=== PATIENT | male | born 1990 | race Caucasian/White ===

== ENCOUNTER 2017-05-19 02:23 | Emergency (ER) | payer OTHER ==
[2017-05-19 02:33] VITALS: BP 114/68; PULSE 61; TEMP 98.6; BMI 23.6
[2017-05-19] MEDS ORDERED: KETOROLAC TROMETHAMINE 60 MG/2 ML VIAL IM ONE (02:36)
--- NOTE | 2017-05-19 02:36 | PDOC ---
History of Present Illness - General Chief Complaint: Pain, Acute Stated Complaint: KNEE PAIN Time Seen by Provider: 05/19/17 02:36 History Source: Patient Exam Limitations: No Limitations - History of Present Illness Initial Comments: 05/19/17 02:37 This is 27-year-old male who comes in complaining of left knee pain. Patient said he was walking down the stairs when he missed a step and felt a pop in his knee. Patient is able to bear weight but says it is painful. Patient took a Percocet and came in for evaluation. Patient denies any other complaints. Patient did not fall down or injure himself in any other way. PAST MEDICAL HISTORY: no significant history PAST SURGICAL HISTORY: no significant history FAMILY HISTORY: no pertinant history SOCIAL HISTORY: Pt lives with family and is employed. MEDICATIONS: reviewed ALLERGIES: As per nursing notes Review of Systems General: No fevers or chills, no weakness, no weight loss HEENT: No change in vision. No sore throat,. No ear pain CardioVascular: No chest pain or shortness of breath Respiratory:No cough, or wheezing. Gastrointestinal: no nausea, vomitting, diarrhea or constipation, No rectal bleeding Genitourinary: No dysuria, hematuria, or frequency Musculoskeletal: Left knee pain Neurologic: No headache, vertigo, dizziness or loss of consciousness Psychiatric: nor depression Skin: No rashes or easy bruising Endocrine: no increased thirst or abnormal weight change Allergic: no skin or latex allergy All other systems reviewed and normal GENERAL: The patient is awake, alert, and fully oriented, in no acute distress. HEAD: Normal with no signs of trauma. EYES: Pupils equal, round and reactive to light, extraocular movements intact, sclera anicteric, conjunctiva clear. EXTREMITIES: There is decreased range of motion secondary to pain. Patient is able to lift his leg up off the bed and the extensor mechanism is intact. There is no ligamentous instability on testing. There is some mild swelling of the knee but no ecchymosis. Neurovascular distal is intact. NEUROLOGICAL: Normal speech, normal gait. PSYCH: Normal mood, normal affect. SKIN: Warm, Dry, normal turgor, no rashes or lesions noted. Assessment and plan: This is a 27-year-old male with ligamentous injury to his left knee. Patient given knee immobilizer and crutches. Patient given note for no work Saturday and referral to an orthopedist. Patient discharged home. Patient has Percocet at home that he can take for pain. Past History - Suicide/Smoking/Psychosocial Hx Smoking History: Unknown if ever smoked Hx Alcohol Use: No Drug/Substance Use Hx: No *Physical Exam - Vital Signs Last Vital Signs Temp Pulse Resp BP Pulse Ox 98.6 F 61 18 114/68 98 05/19/17 02:24 05/19/17 02:24 05/19/17 02:24 05/19/17 02:05/19/17 02:24 *DC/Admit/Observation/Transfer Diagnosis at time of Disposition: Acute internal derangement of left knee - Discharge Dispostion Disposition: HOME Condition at time of disposition: Good Admit: No - Patient Instructions Additional Instructions: Wear the knee immobilizer and use your crutches for ambulation. Tylenol or Motrin as needed for pain. Call orthopedist on Saturday call Dr. Segal at [phone] for an appointment. Return to the emergency department immediately with ANY new, persistent or worsening symptoms. Continue any medications as previously prescribed by your physician. You should follow up with your primary doctor as soon as possible regarding today's emergency department visit. . Please make sure your doctor reviews the results of your emergency evaluation. Thank you for coming to the Emergency Department today for your care. It was a pleasure to see you today. Please note that your evaluation is INCOMPLETE until you follow-up with your doctor. - Post Discharge Activity Forms/Work/School Notes: Parent(s) Back to Work Note
[2017-05-19] MEDS ORDERED: KETOROLAC TROMETHAMINE 60 MG/2 ML VIAL ONE (02:43)
== END 2017-05-19 02:55 | disposition home or self-care (01) ==
LOC: FER 02:23
PROC: 2W3RX1Z Immobilization of Left Lower Leg using Splint (ICD-10-PCS; principal; 2017-05-19)
DX: M23.92 Unspecified internal derangement of left knee (principal); W10.9XXA Fall (on) (from) unspecified stairs and steps, initial encounter; Y93.89 Activity, other specified; Y92.9 Unspecified place or not applicable
CPT/HCPCS: 99283-25

== ENCOUNTER 2017-05-20 12:15 | Emergency (ER) | payer OTHER ==
[2017-05-20 12:21] VITALS: BP 115/64; PULSE 73; TEMP 98.6; BMI 23.6
--- NOTE | 2017-05-20 13:15 | PDOC ---
History of Present Illness - General Chief Complaint: Injury Stated Complaint: FALL/ LT KNEE PAIN Time Seen by Provider: 05/20/17 13:08 History Source: Patient Exam Limitations: No Limitations - History of Present Illness Initial Comments: 05/20/17 13:21 My chief complaint: Left knee pain History of present illness: Patient is a 27-year-old male with no significant medical history here today complaining of continued left knee pain with swelling since falling down stairs on 05/18/2017 twisting his right knee. Patient reports that he heard a pop. Patient was seen at [facility] emergency room on 05/19/2017 and reports that he was given an immobilizer and crutches which he is wearing today and using. Patient reports that he did not have an x- ray is requesting to have an x-ray presently. Patient did not take anything for pain today. 05/20/17 13:23 Occurred: reports: other (05/18/17 FELL TWISTED LEFT KNEE) Pain Location: reports: lower extremity (LEFT KNEE) Method of Injury: Yes: fall Modifying Factors: improves with: immobilization, other (CRUTCHES, KNEE IMMOBLIZER) Loss of Consciousness: no loss of consciousness Associated Symptoms (Fall): trouble walking (USING CRUTCHES ) Past History - Past Medical History Allergies/Adverse Reactions: Allergies Allergy/AdvReac Type Severity Reaction Status Date / Time No Known Allergies Allergy Verified 05/20/17 12:18 Home Medications: Ambulatory Orders NK [No Known Home Medication] 05/20/17 Other medical history: none - Immunization History Immunization Up to Date: Yes - Suicide/Smoking/Psychosocial Hx Smoking History: Never smoked Hx Alcohol Use: No Drug/Substance Use Hx: Yes Substance Use Type: Marijuana Review of Systems - Review of Systems Able to Perform ROS?: Yes Constitutional: No: Symptoms Reported HEENTM: No: Symptoms Reported Respiratory: No: Symptoms reported, Hemoptysis ABD/GI: No: Symptoms Reported : No: Symptoms Reported Musculoskeletal: Yes: Joint Pain (LFET KNEE), Joint Swelling (LEFT KNEE), Other (FELT A POP IN LEFT KNEE ON 05/18/17) Integumentary: No: Symptoms Reported Neurological: No: Symptoms reported *Physical Exam - Vital Signs Last Vital Signs Temp Pulse Resp BP Pulse Ox 98.6 F 73 18 115/64 100 05/20/17 12:19 05/20/17 12:19 05/20/17 12:19 05/20/17 12:19 05/20/17 12:19 - Physical Exam General Appearance: Yes: Appropriately Dressed Extremity: positive: Normal Capillary Refill, Tender (left knee), Swelling ( left knee ), Other. negative: Normal Range of Motion (left knee ) Integumentary: positive: Normal Color Neurologic: positive: Alert, Normal Response, Responsive Medical Decision Making - Medical Decision Making 05/20/17 13:23 05/20/17 13:23 Patient is a 27-year-old male with no significant medical history here today complaining of continued left knee pain with swelling since falling down stairs on 05/18/2017 twisting his right knee. Patient reports that he heard a pop. Patient was seen at [facility] emergency room on 05/19/2017 and reports that he was given an immobilizer and crutches which he is wearing today and using. Patient reports that he did not have an x-ray is requesting to have an x-ray presently. Patient did not take anything for pain today. r/o UMAIR ABNORMALITY LEFT KNEE PLAN; XRAY LEFT KNEE NO ACUTE FRACTURE NOTED IBUPROFEN 600 MG PO NOW 05/20/17 13:58 05/20/17 14:02 05/20/17 14:[address] DEL TORO 05/21/17 AT NOON HERE AT [facility] 05/20/17 14:45 *DC/Admit/Observation/Transfer Diagnosis at time of Disposition: Acute internal derangement of left knee - Discharge Dispostion Disposition: HOME Condition at time of disposition: Stable - Referrals Referrals: Neel Segal MD [Staff Physician] - STAFF,NOT ON [Primary Care Provider] - Jose Elias Del Toro MD [Staff Physician] - - Patient Instructions Additional Instructions: Continue to elevate your leg left leg as much as possible and keep knee immobilizer on and use crutches for ambulation you need to apply ice to your left knee every 2 hours for at least 15-20 minutes each time Do not ambulate without sure crutches Take ibuprofen as needed as directed by department editor for pain Follow up with Dr. Del Toro orthopedist at 12 noon on 05/21/2017 here at [facility] [address]LO[address] [place] Return to emergency room only if any numbness of your left leg or any other new symptoms develop Patient voiced understanding of discharge instructions and all questions were answered thank you for choosing [facility] emergency room for your medical needs today - Post Discharge Activity Forms/Work/School Notes: Back to Work
[2017-05-20] MEDS ORDERED: IBUPROFEN 600 MG TABLET (FP) PO ONE ×2 (13:57→14:03)
== END 2017-05-20 14:51 | disposition home or self-care (01) ==
LOC: JERFT 12:15
DX: M23.8X1 Other internal derangements of right knee (principal); W10.8XXA Fall (on) (from) other stairs and steps, initial encounter; Y93.89 Activity, other specified; Y92.89 Other specified places as the place of occurrence of the external cause; Y99.8 Other external cause status
CPT/HCPCS: 73562-TC-LT; 99281-25

== ENCOUNTER 2017-09-18 17:21 | Emergency (ER) | payer OTHER ==
[2017-09-18 17:45] VITALS: BP 144/84; PULSE 81; TEMP 98.7; BMI 20.9
--- NOTE | 2017-09-18 17:45 | PDOC ---
Rapid Medical Evaluation Time Seen by Provider: 09/18/17 17:40 Medical Evaluation: Allergies Allergy/AdvReac Type Severity Reaction Status Date / Time No Known Allergies Allergy Verified 09/18/17 17:40 I have performed a brief in-person evaluation of this patient. The patient presents with a chief complaint of: burning with urination x 3 days. Pertinent physical exam findings: N/A I have ordered the following: UA/culture, GC/Chlamydia, HIV testing The patient will proceed to the ED for further evaluation.
[2017-09-18 18:24] LABS: URINE APPEARANCE CLEAR; URINE BILIRUBIN NEGATIVE (NEGATIVE); URINE BLOOD NEGATIVE (NEGATIVE); URINE COLOR LTYELLOW; URINE GLUCOSE (UA) NEGATIVE (NEGATIVE); URINE KETONE NEGATIVE (NEGATIVE); URINE LEUK ESTERASE NEGATIVE (NEGATIVE); URINE NITRITE NEGATIVE (NEGATIVE); URINE PROTEIN NEGATIVE (NEGATIVE); URINE UROBILINOGEN 4.0 E.U/dl mg/dL (0.2-1.0)
[2017-09-18] MEDS ORDERED: AZITHROMYCIN 1 GM PACKET PO ONE (20:39)
--- NOTE | 2017-09-18 20:41 | PDOC ---
History of Present Illness - General Chief Complaint: Urinary Problem Stated Complaint: MALE ISSUE Time Seen by Provider: 09/18/17 17:40 History Source: Patient Exam Limitations: No Limitations - History of Present Illness Travel History: No Initial Comments: 09/18/17 20:35 Patient states had unprotected sex with a new partner approximately 2-1/2 3 weeks ago, and felt some discomfort the following day including some burning and tenderness with urination. Patient denies any penile discharge but states has some mild tenderness to his testicles. Denies street of STDs. Timing/Duration: reports: changing over time Quality: reports: mild, moderate Pain Radiation: reports: no radiation Past History - Travel Traveled outside of the country in the last 30 days: No Close contact w/someone who was outside of country & ill: No - Past Medical History Allergies/Adverse Reactions: Allergies Allergy/AdvReac Type Severity Reaction Status Date / Time No Known Allergies Allergy Verified 09/18/17 17:40 Home Medications: Ambulatory Orders NK [No Known Home Medication] 05/20/17 COPD: No - Immunization History Immunization Up to Date: Yes - Suicide/Smoking/Psychosocial Hx Smoking History: Never smoked Hx Alcohol Use: Yes Drug/Substance Use Hx: Yes (marijuana) Substance Use Type: Alcohol, Marijuana Review of Systems - Review of Systems Able to Perform ROS?: Yes Is the patient limited Bel[place]ian proficient: Yes Constitutional: Yes: Symptoms Reported, See HPI, Fever, Malaise HEENTM: Yes: See HPI. No: Symptoms Reported Respiratory: Yes: See HPI. No: Symptoms reported : Yes: Symptoms Reported, See HPI, Burning, Dysuria, Testicular Pain. No: Frequency Integumentary: Yes: See HPI. No: Symptoms Reported, Lesions, Lumps, Rash All Other Systems: Reviewed and Negative *Physical Exam - Vital Signs Last Vital Signs Temp Pulse Resp BP Pulse Ox 98.7 F 81 18 144/84 99 09/18/17 17:40 09/18/17 17:40 09/18/17 17:40 09/18/17 17:40 09/18/17 17:40 - Physical Exam General Appearance: Yes: Nourished, Appropriately Dressed HEENT: positive: INOCENCIA, Normal ENT Inspection, Normal Voice, TMs Normal, Pharynx Normal Neck: positive: Supple. negative: Lymphadenopathy (R), Lymphadenopathy (L) Respiratory/Chest: positive: Lungs Clear, Normal Breath Sounds Gastrointestinal/Abdominal: positive: Soft Male Genitalia: positive: normal genitalia. negative: discharge, testicular tenderness (no reproduced tenderness with palpation to testicles or epididymis. 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, Fully Oriented, Alert, Normal Mood/ Affect, Normal Response, Motor Strength 12/28 ED Treatment Course - ADDITIONAL ORDERS Additional order review: Laboratory Results 09/18/17 18:09 Urine Color Ltyellow Urine Appearance Clear Urine pH 6.0 Ur Specific [place] 1.023 Urine Protein Negative Urine Glucose (UA) Negative Urine Ketones Negative Urine Blood Negative Urine Nitrite Negative Urine Bilirubin Negative Urine Urobilinogen 4.0 e.u/dl Ur Leukocyte Esterase Negative Progress Note - Progress Note Progress Note: Possible STD, treated with Rocephin 250 mg IM for gonorrhea treatment, given his azithromycin 1 g by mouth for treatment of chlamydia. Medical Decision Making - Medical Decision Making 09/18/17 21:23 Laboratory work returned tonight reveals negative UA, HIV testing negative. Patient understands he will not receive results of gonorrhea, chlamydia, hepatitis testing until following week. Medicated with Rocephin, azithromycin for chlamydia and gonorrhea *DC/Admit/Observation/Transfer Diagnosis at time of Disposition: Possible exposure to STD - Discharge Dispostion Disposition: HOME Condition at time of disposition: Stable Admit: No - Referrals Referrals: Stefano Zarco MD [Staff Physician] - - Patient Instructions Printed Discharge Instructions: Facts About Sexually Transmitted Infections Additional Instructions: You been treated today with azithromycin 1 g by mouth for treatment of chlamydia You have been treated with Rocephin 250 mg injection for treatment of gonorrhea . Always use condoms with the partners Followup with PMD in one week for reevaluation and retesting. You may call [phone] leave your name, birthdate, and date of service to have phone call returned for lab results. If These results will not be completed for at least one week discussed with all sexual partners this past month for treatment - Post Discharge Activity Forms/Work/School Notes: Back to Work
[2017-09-18] MEDS ORDERED: AZITHROMYCIN 500 MG TABLET ONE (20:44)
[2017-09-18] MEDS ORDERED: LIDOCAINE HCL 1%, 10 MG/ML (20ML VIAL) ONE (20:45)
[2017-09-18] MEDS ORDERED: LIDOCAINE HCL 1%, 10 MG/ML (50 mL VIAL) SNB ONE (21:43)
== END 2017-09-18 21:45 | disposition home or self-care (01) ==
LOC: JERFT 17:21
DX: Z11.3 Encounter for screening for infections with a predominantly sexual mode of transmission (principal)
CPT/HCPCS: 36415; 81003; 87086; 87389; 87491; 87591; 96372; 99281-25

== ENCOUNTER 2017-10-08 19:34 | Emergency (ER) | payer OTHER ==
--- NOTE | 2017-10-08 19:53 | PDOC ---
Rapid Medical Evaluation Time Seen by Provider: 10/08/17 19:48 Medical Evaluation: Allergies Allergy/AdvReac Type Severity Reaction Status Date / Time No Known Allergies Allergy Verified 09/18/17 17:40 10/08/17 19:48 I have performed a brief in-person evaluation of this patient. The patient presents with a chief complaint of: boil/cyst to perineum x months, "feeling off today", +nausea/chills/headache, abd pain, denies vomiting/diarrhea Pertinent physical exam findings: N/A I have ordered the following: nothing The patient will proceed to the ED for further evaluation. Discharge Disposition - Diagnosis Boil - Referrals - Patient Instructions - Post Discharge Activity
[2017-10-08 19:55] VITALS: BP 133/38; PULSE 81; TEMP 98.2; BMI 20.9
[2017-10-08] MEDS ORDERED: SULFAMETHOXAZOLE/TRIMETHOPRIM 800MG/160MG D.S. TABLET PO ONE (23:57)
[2017-10-08] MEDS ORDERED: IBUPROFEN 600 MG TABLET (FP) PO STA (23:57)
--- NOTE | 2017-10-08 23:57 | PDOC ---
History of Present Illness - General History Source: Patient <Abel Goss - Last Filed: 10/08/17 23:59> - General History Source: Patient Exam Limitations: No Limitations - History of Present Illness Initial Comments: 10/09/17 00:31 Patient is a 27 year old male with no significant past medical history who presents to the ED with complaints of lesion formation on his inner thigh that began 3 months ago. Patient reports experiencing formation of a lesion on his inner thigh that initially started to form 3 months ago that began to become firmer over the last week, prompting him to come into the ED for further evaluation. He reports over the course of 3 months the lesion has grown and diminishes in size as he states he has squeezed the contents of the lesion offering slight relief. Denies chest pain, Sob. Denies nausea, vomiting. Denies fevers, chills. Denies trauma to affected area. Denies contact with sick individuals, out of state travelling. Denies any other symptoms. Allergies: None Social history: No smoking. Social drinker. Current Marijuana user. Surgical history: None PMD: None <James Xavier - Last Filed: 10/09/17 00:32> - General Chief Complaint: Pain Stated Complaint: BOIL Time Seen by Provider: 10/08/17 19:48 Past History - Past Medical History COPD: No Other medical history: Pt denies - Immunization History Immunization Up to Date: Yes - Suicide/Smoking/Psychosocial Hx Smoking History: Never smoked Have you smoked in the past 12 months: No Information on smoking cessation initiated: No Hx Alcohol Use: No Drug/Substance Use Hx: No Substance Use Type: Alcohol, Marijuana <Abel Goss - Last Filed: 10/08/17 23:59> <James Xavier - Last Filed: 10/09/17 00:32> - Past Medical History Allergies/Adverse Reactions: Allergies Allergy/AdvReac Type Severity Reaction Status Date / Time No Known Allergies Allergy Verified 10/08/17 19:52 Home Medications: Ambulatory Orders Ibuprofen [Motrin] 600 mg PO TID #30 tablet 10/08/17 Sulfamethoxazole/Trimethoprim [Bactrim *Ds*] 1 tab PO BID #20 tablet 10/08/17 Review of Systems - Review of Systems Able to Perform ROS?: Yes Comments:: 10/09/17 00:31 CONSTITUTIONAL: Absent: fever, no chills, no fatigue EYES: Absent: visual changes ENT: Absent: ear pain, no sore throat CARDIOVASCULAR: Absent: chest pain, no palpitations RESPIRATORY: Absent: cough, no SOB GI: Absent: abdominal pain, no nausea, no vomiting, no constipation, no diarrhea GENITOURINARY: Absent: dysuria, no frequency, no hematuria MUSCULOSKELETAL: Absent: back pain, no arthralgia, no myalgia SKIN: +inner groin lesion. Absent: rash <James Xavier - Last Filed: 10/09/17 00:32> *Physical Exam - Vital Signs Last Vital Signs Temp Pulse Resp BP Pulse Ox 98.2 F 81 18 133/38 100 10/08/17 19:53 10/08/17 19:53 10/08/17 19:53 10/08/17 19:53 10/08/17 19:53 <Abel Goss - Last Filed: 10/08/17 23:59> - Vital Signs Last Vital Signs Temp Pulse Resp BP Pulse Ox 98.2 F 81 18 133/38 100 10/08/17 19:53 10/08/17 19:53 10/08/17 19:53 10/08/17 19:53 10/08/17 19:53 - Physical Exam Comments: 10/09/17 00:31 GENERAL: Well-appearing, well-nourished. No apparent distress. HEENT: Normocephalic, atraumatic. PERRL, EOM intact. CARDIOVASCULAR: Normal S1, S2. Regular rate and rhythm. PULMONARY: Clear to auscultation bilaterally. ABDOMEN: Soft, non-distended, non-tender. EXTREMITIES: Normal ROM in all four extremities. No gross deformities. SKIN: +Lesion in the inner aspect of the left thigh just lateral to the base of the scrotum. +Firm lesion on the inner groin lateral to the perineum in the medial aspect of the left thigh. +Mildly tender. Non fluctuant. No erythema, drainage. Warm, dry. No rash NEUROLOGICAL: No focal neurological deficits. <James Xavier - Last Filed: 10/09/17 00:32> ED Treatment Course - Medications Given in the ED: ED Medications Discontinued Medications Generic Name Dose Route Start Last Admin Trade Name Freq PRN Reason Stop Dose Admin Ibuprofen 600 mg 10/08/17 23:57 10/09/17 00:04 Motrin - PO 10/08/17 23:58 600 mg ONCE STA Administration Trimethoprim/Sulfamethoxazole 1 each 10/08/17 23:57 10/09/17 00:04 Bactrim Ds - PO 10/08/17 23:58 1 each ONCE ONE Administration <James Xavier - Last Filed: 10/09/17 00:32> Medical Decision Making - Medical Decision Making 10/09/17 00:00 Dr. Goss: The scribe's documentation has been prepared under my direction and personally reviewed by me in its entirery. I confirm that the note above accurately reflects all work, treatment, procedures, and medical decision making performed by me. Patient has lesion in the groin in the medial aspect of the left thigh. It is firm, tender, non-fluctuant, with no surrounding erythema. Patient will be given antibiotics to allow mature. Patient will return once lesion becomes soft for I&D <Abel Goss - Last Filed: 10/08/17 23:59> *DC/Admit/Observation/Transfer - Discharge Dispostion Admit: No <Abel Goss - Last Filed: 10/08/17 23:59> - Attestations Scribe Attestion: 10/09/17 00:31 Documentation prepared by James Xavier, acting as medical communication specialist for Able Goss MD/DO. <James Xavier - Last Filed: 10/09/17 00:32> Diagnosis at time of Disposition: Boil, Abscess - Discharge Dispostion Disposition: HOME Condition at time of disposition: Stable - Prescriptions Prescriptions: Ibuprofen [Motrin] 600 mg PO TID #30 tablet Sulfamethoxazole/Trimethoprim [Bactrim *Ds*] 1 tab PO BID #20 tablet - Patient Instructions Printed Discharge Instructions: DI for Skin Abscess
[2017-10-09] MEDS ORDERED: IBUPROFEN 600 MG TABLET (FP) PO ONE (00:01)
[2017-10-09] MEDS ORDERED: SULFAMETHOXAZOLE/TRIMETHOPRIM 800MG/160MG D.S. TABLET ONE (00:01)
== END 2017-10-09 00:53 | disposition home or self-care (01) ==
LOC: JER 19:34
DX: L02.416 Cutaneous abscess of left lower limb (principal)
CPT/HCPCS: 99281-25

== ENCOUNTER 2017-10-21 21:45 | Emergency (ER) | payer OTHER ==
[2017-10-21 21:54] VITALS: TEMP 98; BMI 22.3
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
[2017-10-21 22:26] LABS: BASO % 0.4 % (0-2.0); EOS % 0.7 % (0-4.5); HEMOGLOBIN 15.3 GM/dL (11.7-16.9); LYMPH % 19.8 % (8-40); MCH 33.2 pg (25.7-33.7); MCHC 34.1 g/dl (32.0-35.9); MEAN CELL VOLUME 97.5 fl (80-96); MEAN PLT VOLUME 9.1 fl (7.5-11.1); MONO % 6.2 % (3.8-10.2); NEUT % 72.9 % (42.8-82.8); PLATELET COUNT 176 K/MM3 (134-434); RBC 4.62 M/mm3 (4.00-5.60); RDW 13.7 % (11.9-15.9); WHITE BLOOD COUNT 9.9 K/mm3 (4.0-10.0)
[2017-10-21 22:36] LABS: INR 1.04 (0.82-1.09); PROTHROMBIN TIME (PATIENT) 11.7 SEC (9.98-11.88)
[2017-10-21 22:38] LABS: ACTIVATED PTT 31.5 SECONDS (26.9-34.4)
[2017-10-21 22:53] LABS: ALBUMIN 4.1 g/dl (3.4-5.0); ALK PHOS 94 U/L (45-117); ANION GAP 5 (8-16); BILIRUBIN,TOTAL 0.4 mg/dL (0.2-1.0); BLOOD UREA NITROGEN 16 mg/dL (7-18); CALCIUM 8.5 mg/dL (8.5-10.1); CHLORIDE 105 mmol/L (98-107); CO2 30 mmol/L (21-32); CREATININE 1.2 mg/dL (0.7-1.3); GLUCOSE,RANDOM 96 mg/dL (74-106); POTASSIUM 3.9 mmol/L (3.5-5.1); SGOT/AST 23 U/L (15-37); SGPT/ALT 28 U/L (12-78); SODIUM 140 mmol/L (136-145); TOT PROT 7.2 g/dl (6.4-8.2)
[2017-10-22 01:39] LABS: URINE APPEARANCE CLEAR; URINE BILIRUBIN NEGATIVE (NEGATIVE); URINE BLOOD NEGATIVE (NEGATIVE); URINE COLOR YELLOW; URINE GLUCOSE (UA) NEGATIVE (NEGATIVE); URINE KETONE NEGATIVE (NEGATIVE); URINE LEUK ESTERASE NEGATIVE (NEGATIVE); URINE NITRITE NEGATIVE (NEGATIVE); URINE PROTEIN NEGATIVE (NEGATIVE); URINE UROBILINOGEN NEGATIVE mg/dL (0.2-1.0)
[2017-10-22 02:14] VITALS: BP 119/68; PULSE 89
== END 2017-10-22 02:14 | disposition home or self-care (01) ==
LOC: JER 21:45
DX: S06.0X1A Concussion with loss of consciousness of 30 minutes or less, initial encounter (principal); V29.88XA Motorcycle rider (driver) (passenger) injured in other specified transport accidents, initial encounter; Y92.488 Other paved roadways as the place of occurrence of the external cause; Y93.89 Activity, other specified; Y99.8 Other external cause status
CPT/HCPCS: 36415; 70450-TC; 70486-TC; 71111-TC-FY; 71250-TC; 72125-TC; 72192-TC; 73030-TC-LT-FY; 73030-TC-RT-FY; 73060-TC-LT-FY; 73060-TC-RT-FY; 73070-TC-RT-FY; 73110-TC-RT-FY; 73140-TC-RT-FY; 80053; 81003; 85025; 85610; 85730; 86850; 86900; 86901; 99283-25

== ENCOUNTER 2020-02-21 13:19 | Emergency (ER) | payer OTHER ==
--- NOTE | 2020-02-21 13:27 | PDOC ---
Rapid Medical Evaluation Time Seen by Provider: 02/21/20 13:23 Medical Evaluation: Allergies Allergy/AdvReac Type Severity Reaction Status Date / Time No Known Allergies Allergy Verified 10/21/17 21:52 02/21/20 13:23 Pt presents for a rash on his penis for three weeks. States that it is mildly itchy and painful. Sexually active with one partner. States he also has a similar rash on his foot and on his back Exam: defer to provider Orders: Defer to provider after exam Pt to proceed to FT for further evaluation Discharge Disposition - Diagnosis Rash - Referrals - Patient Instructions - Post Discharge Activity
[2020-02-21 13:35] VITALS: BP 120/63; PULSE 77; TEMP 98.7; BMI 23.6
--- NOTE | 2020-02-21 14:07 | PDOC ---
History of Present Illness - General Chief Complaint: Rash Stated Complaint: RASH Time Seen by Provider: 02/21/20 13:23 History Source: Patient Exam Limitations: No Limitations - History of Present Illness Initial Comments: 02/21/20 13:54 Patient is a 30-year-old male with no past medical history here with complaints of rash to his penis x 2 weeks. Patient states that the rash started out a little red dots with were irritated which has progressively worsened to the point that now it is a painful. He is also complaining of a rash on his scrotal sac and to his groin. States that he has had those for a long time because he gets a little sweaty. 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 No history of STD. Denies fever, chills, nausea, vomiting. PMHX: as above PSOCHX: ALL: NKDA GENERAL/CONSTITUTIONAL: [No fever or chills. No weakness. No weight change.] HEAD, EYES, EARS, NOSE AND THROAT: [No change in vision. No ear pain or discharge. No sore throat.] CARDIOVASCULAR: [No chest pain or shortness of breath.] RESPIRATORY: [No cough, wheezing, or hemoptysis.] GASTROINTESTINAL: [No nausea, vomiting, diarrhea or constipation. No rectal bleeding.] GENITOURINARY: [No dysuria, frequency, or change in urination.] MUSCULOSKELETAL: [No joint or muscle swelling or pain. No neck or back pain.] SKIN AND BREASTS: [(+) rash (-) easy bruising.] NEUROLOGIC: [No headache, vertigo, loss of consciousness, or loss of sensation.] ENDOCRINE: [No increased thirst. No abnormal weight change.] HEMATOLOGIC/LYMPHATIC: [No anemia, easy bleeding, or history of blood clots.] ALLERGIC/IMMUNOLOGIC: [No hives or skin allergy. No latex allergy.] GENERAL: [The patient is awake, alert, and fully oriented, in no acute distress.] HEAD: [Normal with no signs of trauma.] EYES: [Pupils equal, round and reactive to light, extraocular movements intact, sclera anicteric, conjunctiva clear.] ENT: [Ears normal, nares patent, oropharynx clear without exudates. Moist mucous membranes.] NECK: [Normal range of motion, supple without lymphadenopathy, JVD, or masses.] LUNGS: [Breath sounds equal, clear to auscultation bilaterally. No wheezes, and no crackles.] HEART: [Regular rate and rhythm, normal S1 and S2 without murmur, rub.] ABDOMEN: [Soft, nontender, normoactive bowel sounds. No guarding, no rebound. No masses.] : Circumcised, fine erythematous rash around the neck of the glans, no discharge noted EXTREMITIES: [Normal range of motion, no edema. No clubbing or cyanosis. No cords, erythema, or tenderness.] NEUROLOGICAL: [Cranial nerves II through XII grossly intact. Normal speech, normal gait.] PSYCH: [Normal mood, normal affect.] SKIN: [Warm, Dry, normal turgor, (+) erythematous rashes on the right foot over the instep, hyperpigmented rash to right shoulder, no lesions noted.] Past History - Medical History Allergies/Adverse Reactions: Allergies Allergy/AdvReac Type Severity Reaction Status Date / Time No Known Allergies Allergy Verified 02/21/20 13:37 Home Medications: Ambulatory Orders Clotrimazole/Betamethasone Dip [Clotrimazole-Betamethasone Crm] 45 gm TP BID #1 cream..g. 02/21/20 Tolnaftate 1% Powder [Tinactin] 1 applic TP BID #1 btl 02/21/20 COPD: No - Immunization History Immunization Up to Date: Yes - Psycho-Social/Smoking History Smoking History: Never smoked Have you smoked in the past 12 months: No - Substance Abuse Hx (Audit-C & DAST Scrn) How often the patient has a drink containing alcohol: Never Score: In Men: 4 or > Positive; In Women: 3 or > Positive: 0 Screen Result (Pos requires Nsg. Audit-10AR): Negative In the last yr the pt used illegal drug/Rx for NonMed reason: No Score: Yes response is considered Positive: 0 Screen Result (Positive result requires Nsg. DAST-10): Negative *Physical Exam - Vital Signs Last Vital Signs Temp Pulse Resp BP Pulse Ox 98.7 F 77 120/63 99 02/21/20 13:27 02/21/20 13:27 02/21/20 13:27 02/21/20 13:27 Medical Decision Making - Medical Decision Making 02/21/20 13:54 Patient is a 30-year-old male with no past medical history here with complaints of rash to his penis x 2 weeks. Patient states that the rash started out a little red dots with were irritated which has progressively worsened to the point that now it is a painful. He is also complaining of a rash on his scrotal sac and to his groin. States that he has had those for a long time because he gets a little sweaty. 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 No history of STD. Denies fever, chills, nausea, vomiting. Symptoms consistent with fungal infection to the glans penis will discharge patient with prescription for Chlortrimazole. I discussed the physical exam findings, ancillary test results and final diagnoses with the patient. I answered all of the patient's questions. The patient was satisfied with the care received and felt comfortable with the discharge plan and treatment plan. The Patient agrees to follow up with the primary care physician within 24-72 hours. Discharge - Discharge Information Problems reviewed: Yes Clinical Impression/Diagnosis: Rash, Tinea cruris, Balanitis Condition: Stable Disposition: HOME - Additional Discharge Information Prescriptions: Clotrimazole/Betamethasone Dip [Clotrimazole-Betamethasone Crm] 45 gm TP BID #1 cream..g. Tolnaftate 1% Powder [Tinactin] 1 applic TP BID #1 btl - Follow up/Referral - Patient Discharge Instructions Patient Printed Discharge Instructions: DI for Athlete's Foot, DI for Tinea Corporis, DI for Jock Itch Additional Instructions: Your Discharge Instructions: You must call primary care physician within 24 hours to arrange follow-up. Return to the Emergency Department with any new, persistent or worsening symptoms, for fever, chills, SOB, dizziness or any other concerning changes that may occur. - Post Discharge Activity
== END 2020-02-21 14:27 | disposition home or self-care (01) ==
LOC: JER 13:19
DX: R21 Rash and other nonspecific skin eruption (principal); B35.6 Tinea cruris; N48.1 Balanitis
CPT/HCPCS: 36415; 87491; 87591; 99283-25

== ENCOUNTER 2020-05-26 20:02 | Emergency (ER) | payer OTHER ==
[2020-05-26 20:07] VITALS: BP 132/66; PULSE 80; TEMP 97.1; BMI 22.3
--- NOTE | 2020-05-26 20:23 | PDOC ---
History of Present Illness - General Chief Complaint: Cold Symptoms Stated Complaint: COLD SYX Time Seen by Provider: 05/26/20 20:15 History Source: Patient Exam Limitations: Clinical Condition - History of Present Illness Initial Comments: 05/26/20 20:24 Patient with no significant past medical history present with complaint of 4 days history of nasal congestion, runny nose, sinus congestion and intermittent dry cough. Denies fever, chills, shortness of breath, chest pain, palpitation. Denies recent travel or sick contact. Patient report taking Zyrtec [id number] medication with no improvement. Denies any other symptoms Is this a multiple visit Asthma Patient?: No Timing/Duration: other (4 days) Past History - Medical History Allergies/Adverse Reactions: Allergies Allergy/AdvReac Type Severity Reaction Status Date / Time No Known Allergies Allergy Verified 02/21/20 13:37 Home Medications: Ambulatory Orders Clotrimazole/Betamethasone Dip [Clotrimazole-Betamethasone Crm] 45 gm TP BID #1 cream..g. 02/21/20 Tolnaftate 1% Powder [Tinactin] 1 applic TP BID #1 btl 02/21/20 Benzonatate [Tessalon Pearls -] 100 mg PO Q8H PRN #16 capsule 05/26/20 Ipratropium [place] 2 spray NS BID PRN #1 spray 05/26/20 Methylprednisolone [Medrol Dose Mihir] 4 mg PO ASDIR #21 tablet 05/26/20 COPD: No - Immunization History Immunization Up to Date: Yes - Psycho-Social/Smoking History Smoking History: Never smoked Have you smoked in the past 12 months: No - Substance Abuse Hx (Audit-C & DAST Scrn) How often the patient has a drink containing alcohol: Never Score: In Men: 4 or > Positive; In Women: 3 or > Positive: 0 Screen Result (Pos requires Nsg. Audit-10AR): Negative In the last yr the pt used illegal drug/Rx for NonMed reason: Yes Score: Yes response is considered Positive: 1 Screen Result (Positive result requires Nsg. DAST-10): Positive Review of Systems - Review of Systems Able to Perform ROS?: Yes Is the patient limited Pashto proficient: No Constitutional: No: Chills, Fever, Malaise HEENTM: Yes: Symptoms Reported, See HPI, Nose Congestion, Throat Pain. No: Eye Pain, Blurred Vision, Tearing, Recent change in vision, Double Vision, Cataracts, Ear Pain, Ocular Prothesis, Ear Discharge, Nose Pain, Tinnitus, Nose Bleeding, Hearing Loss, Throat Swelling, Mouth Pain, Dental Problems, Difficulty Swallowing, Mouth Swelling, Other Respiratory: Yes: Symptoms reported, See HPI, Cough. No: Orthopnea, Shortness of Breath, SOB with Exertion, SOB at Rest, Stridor, Wheezing, Productive cough, Hemoptysis, Other Cardiac (ROS): No: Symptoms Reported, See HPI, Chest Pain, Edema, Irregular Heart Rate, Lightheadedness, Palpitations, Syncope, Chest Tightness, Other ABD/GI: No: Symptoms Reported, See HPI, Nausea, Vomiting Musculoskeletal: No: Symptoms Reported Integumentary: No: Symptoms Reported, Rash All Other Systems: Reviewed and Negative *Physical Exam - Vital Signs Last Vital Signs Temp Pulse Resp BP Pulse Ox 97.1 F L 80 19 132/66 99 05/26/20 20:04 05/26/20 20:04 05/26/20 20:04 05/26/20 20:04 05/26/20 20:04 - Physical Exam 05/26/20 20:25 GENERAL: Well developed, well nourished. Awake and alert. No acute distress. HEENT: Normocephalic, atraumatic. PERRLA, EOMI. No conjunctival pallor. Sclera are non-icteric. Moist mucous membranes. Oropharynx is clear. NECK: Supple. Full ROM. CARDIOVASCULAR: Regular rate and rhythm. No murmurs, rubs, or gallops. Distal pulses are 2+ and symmetric. PULMONARY: No evidence of respiratory distress. Lungs clear to auscultation bilaterally. No wheezing, rales or rhonchi. ABDOMINAL: Soft. Non-tender. Non-distended. No rebound or guarding. No organomegaly. Normoactive bowel sounds. MUSCULOSKELETAL Normal range of motion at all joints. SKIN: Warm and dry. Normal capillary refill. No rashes. No cyanosis. NEUROLOGICAL: Alert, awake, appropriate. Gait is normal without ataxia. PSYCHIATRIC: Cooperative. Good eye contact. Appropriate mood General Appearance: Yes: Nourished, Appropriately Dressed. No: Apparent Distress Medical Decision Making - Medical Decision Making 05/26/20 20:24 Patient with no significant past medical history present with complaint of 4 days history of nasal congestion, runny nose, sinus congestion and intermittent dry cough. Denies fever, chills, shortness of breath, chest pain, palpitation. Denies recent travel or sick contact. Patient report taking Zyrtec [id number] medication with no improvement. Denies any other symptoms Clinical exam unremarkable except bilateral nasal congestion. Lungs clear to auscultation bilateral and normal cardio exam. Patient afebrile. Patient in no acute respiratory distress. Symptoms likely viral URI and stable for discharge on Tessalon Perles p.o. for cough and Atrovent nasal spray for nasal congestion with Medrol pack with advised to increase fluid intake with PCP follow-up Discharge - Discharge Information Problems reviewed: Yes Clinical Impression/Diagnosis: URI with cough and congestion Condition: Stable Disposition: HOME - Admission No - Additional Discharge Information Prescriptions: Ipratropium [place] 2 spray NS BID PRN #1 spray PRN Reason: nasal congestion Methylprednisolone [Medrol Dose Mihir] 4 mg PO ASDIR #21 tablet Benzonatate [Tessalon Pearls -] 100 mg PO Q8H PRN #16 capsule PRN Reason: Cough - Follow up/Referral - Patient Discharge Instructions Patient Printed Discharge Instructions: DI for Viral Upper Respiratory Infection -- Adult Additional Instructions: Your symptoms likely from viral infection. Take prescribed indications prescribed as needed for cough and congestion. Increase fluid intake. Follow- up with your primary care - Post Discharge Activity
--- OUTSIDE RECORDS SUMMARY | 2020-05-27 04:36 | XMS ---
:1990 Author Organization [facility] Care Team Providers Name Role Phone Ihezie, Mary Jo Unavailable Unavailable Ihezie, Mary Jo Unavailable Unavailable Ihezie, Mary Jo Unavailable Unavailable Ihezie, Mary Jo Unavailable Unavailable Ihezie, Mary Jo Unavailable Unavailable Ihezie, Mary Jo Unavailable Unavailable Ihezie, Mary Jo Unavailable Unavailable Ihezie, Mary Jo Unavailable Unavailable Ihezie, Mary Jo Unavailable Unavailable Ihezie, Mary Jo Unavailable Unavailable NONE, NONE Unavailable Unavailable Gildardo Kapadia MD Unavailable Unavailable Enzo Kapadia MD Unavailable Unavailable Enzo Kapadia MD Unavailable Unavailable Enzo Kapadia MD Unavailable Unavailable Enzo Kapadia MD Unavailable Unavailable Re-disclosure Warning The records that you are about to access may contain information from federally- assisted alcohol or drug abuse programs. If such information is present, then the following federally mandated warning applies: This information has been disclosed to you from records protected by federal confidentiality rules (42 CFR part 2). The federal rules prohibit you from making any further disclosure of this information unless further disclosure is expressly permitted by the written consent of the person to whom it pertains or as otherwise permitted by 42 CFR part 2. A general authorization for the release of medical or other information is NOT sufficient for this purpose. The Federal rules restrict any use of the information to criminally investigate or prosecute any alcohol or drug abuse patient.The records that you are about to access may contain highly sensitive health information, the redisclosure of which is protected by Article 27-F of the [place] State Public Health law. If you continue you may haveaccess to information: Regarding HIV / AIDS; Provided by facilities licensed or operated by the [facility] Office of Mental Health; or Provided by the [facility] Office for People With Developmental Disabilities. If such information is present, then the following [facility] mandated warning applies: This information has been disclosed to you from confidential records which are protected by state law. State law prohibits you from making any further disclosure of this information without the specific written consent of the person to whom it pertains, or as otherwise permitted by law. Any unauthorized further disclosure in violation of state law may result in a fine or halfway sentence or both. A general authorization for the release of medical or other information is NOT sufficient authorization for further disclosure. Allergies and Adverse Reactions Type Description Substance Reaction Status Data Source(s ) D No Known Medication No Known Medication [place] [facility] - Allergies Allergies [facility] Encounters Encounter Providers Location Date Indications Data Source(s ) Emergency Attender: Gildardo GAONA XR-ED 04/24/2019 ABD PAIN [place] [facility] FLYNNeferrer: 09:22:44 PM [facility] NONE NONE EDT - [facility] 04/25/2019 01:15:00 AM EDT ABD PAIN Patient discharged. Emergency Attender: Mary Jo GAONA XR-ED 04/24/2019 DIZZY [place] [facility] - DiegoezieReferrer: NONE 12:11:46 PM EDT [facility] NONE - 04/24/[address] 02:28:00 PM EDT DIZZY [facility] Patient discharged. Medications Medication Brand Start Product Dose Route Administrative Pharmacy [facility] Indications Reaction Description Data Name Date Form Instructions Instructions Source(s) Naproxen naprox 500.0 Oral [place] 500 MG Oral en 500 2019 mg [facility] ashwin Tablet mg 12:54: an - naproxen oral 44 AM [place] [address] [facility] Ondansetron Zofran .0 Oral [place] 4 MG ODT 4 2019 mg [facility] Disintegrat mg 12:54: an - ing Oral oral 18 AM [place] Tablet tablet [facility] 4 mg oral disint Center tablet, egrati disintegrat ng ing Ondansetron Zofran .0 Oral [place] 4 MG ODT 4 2019 mg [facility] Disintegrat mg 12:54: an - ing Oral oral 17 AM [place] Tablet tablet T [facility] 4 mg oral disint [place] tablet, egrati disintegrat ng ing Loperamide heather 2.0 Oral [place] Hydrochlori mide 2 2019 mg [facility] ashwin de 2 MG mg 12:54: an - Oral Tablet oral 16 AM [place] loperamide tablet [place] 2 mg oral Hospital tablet Center Esomeprazol NexIUM 20.0 Oral [place] e 20 MG 20 mg 2019 mg [facility] Delayed oral 12:54: an - Release delaye 15 AM [place] Oral d EDT [place] Capsule [facility] NexIUM 20 e Center mg oral capsul delayed e release capsule Insurance Providers Payer name Policy type Policy ID Covered Covered green party's Policy P alicja / Coverage green party ID relationship to [facility] ormation type mulligan [facility] [id number] SP [id number] H [place]ID [facility] [id number] MED[place] [place] [id number] SELF PAY SP Problems, Conditions, and Diagnoses Code Display Name Description Problem Type Effective Data Sour ce(s) Dates R10.9 Unspecified Unspecified Diagnosis 04/24/2019 [facility] marika - abdominal pain abdominal pain 09:22:44 PM [facility] R10.32 Left lower Left lower Diagnosis 04/24/2019 [facility] - quadrant pain quadrant pain 12:11:46 PM [facility] Surgeries/Procedures Procedure Description Date Indications Data Source(s) COLLECTION VENOUS BLOOD 04/24/2019 [facility] - VENIPUNCTURE 10:03:00 PM [facility] COLLECTION VENOUS BLOOD 04/24/2019 [facility] - VENIPUNCTURE 12:29:00 PM [facility] Results ID Date Data Source [id number] 12/23/2019 12:00:00 AM EDT [facility] Name Value Range Interpretation Code Description Data Amber rce(s) Supporting Document(s ) 2019-nCoV [facility] RNA XXX LISSET+probe- Imp This lab was ordered by [facility] and reported by [employer] ID Date Data Source [id number] 04/25/2019 12:05:00 AM EDT [facility] [id number] Hospital Center Name Value Range Interpretation Description Data Source(s ) Supporting Code Document(s ) RADRPT <table border="1" [facility] marika width="95%"><colgro - [place] V alley up><col Hospital Center width="25%"></col>< col width="25%"></col>< col width="25%"></col>< col width="25%"></col>< /colgroup><tbody><t r><td>Exam Date Time</td><td>Proced ure</td><td>Perform ing Provider</td><td>[facility]</td></tr><tr>< td>04/25/19 12:25 AM</td><td>CT Abdomen/Pelvis W Contrast</td><td>ANDREWS WEST; </td><td>Auth (Verified)</td></tr ></tbody></table><p aragraph>Notes:</pa ragraph><paragraph> (CT Abdomen/Pelvis W Contrast) Reason For Exam: Pain, Abdominal, Site Nec</paragraph><par agraph><content>Rep ort</content>
< content ID="[id number]">Examination: Contrast enhanced CAT scan of Abdomen and Pelvis .
Automated exposure control was utilized.
Histo ry: Lower abdominal pain and vomiting.
Contr ast: 100 cc IV contrast. Oral contrast .
Contiguous images from the lung bases to the symphysis pubis have been
performed. Computer reformatted coronal and sagittal images have been
obtained.< br/>
FINDINGS:< br/>Lung bases are clear .
There is possible mild thickened appearance of the stomach and small
bowel loops, while this may be nonspecific and due to incomplete
opac ification with enteric contrast the possibility of gastroenteritis<br/ >cannot be ruled out. Clinical correlation and follow-up suggested.
Ther e is no pneumatosis or air in the portal venous system. The portal
vein is patent. Mild splenomegaly. If indicated sonographic evaluation
may be obtained. No intestinal obstruction . No free air .
Liver: Demonstrates no contrast-enhancing lesions . No dilated
intra or extra hepatic ducts .
Gallbladder shows no calcified gallstones. .
Pancreas appears normal.
Adrenal glands are normal .
Right kidney is normal.
Left kidney is normal ..
Normal excretion of contrast by both kidneys .
Abdominal aorta shows no aneurysm.
No abdominal mass .
No retroperitoneal lymphadenopathy..<b r/>Appendix is normal .
Ascites none .
Hernia none .
The urinary bladder is well distended..
No pelvic mass or free fluid . No pelvic lymphadenopathy .

IMPRESSION:

1. Possible mild mucosal thickening of the stomach and proximal small
bowel loops. Rule out gastroenteritis or other etiology.
2. Mild splenomegaly. Clinical correlation is recommended.
3. No intestinal obstruction, pneumoperitoneum , abdominal mass,
pelvic mass or ascites.

Preliminary radiology report has been given to the ER physician by
Dr. Lindsay Vasques , radiologist on-call. </content>
<con tent> Final
Dictated By: GELACIO CYR MD 04.25.2019 2:15 pm

Release d By: (Electronic Signature)
Sign ed: GELACIO CYR MD 04.25.2019 2:15 pm

Transcr ibed: 04.25.2019 2:17 pm </content></paragra ph> ID Date Data Source [id number] 04/24/2019 10:03:00 PM EDT [facility] [id number] Hospital Center Name Value Range Interpretation Code Description Data Amber rce(s) Supporting Document(s ) EGFR AA [facility] ID Date Data Source [id number] 04/24/2019 10:03:00 PM EDT [facility] [id number] Hospital Center Name Value Range Interpretation Description Data Source(s ) Supporting Code Document(s ) Neutro 78.3 % Above high normal [facility] mar[facility] Percent - [facility] Lymph 12.4 % Below low normal [facility] an Percent - [facility] Eos Percent 0.2 % Normal (applies [facility] marika to non-numeric [facility] results) [facility] [place] Percent 8.7 % Normal (applies [facility] nadia to non-numeric [facility] results) [facility] Baso Percent 0.4 % Normal (applies [place] [facility] nadia to non-numeric [facility] results) [facility] Lymph 0.9 Below low normal [facility] an Absolute x10(3)/mc - [facility] L [facility] Neutro 5.9 Normal (applies [place] [facility] Absolute x10(3)/mc to non-numeric [facility] L results) [facility] [place] 0.7 Normal (applies [place] [facility] Absolute x10(3)/mc to non-numeric - [facility] L results) Hospital Center Eos Absolute 0.0 Normal (applies [place] [facility] nadia x10(3)/mc to non-numeric [facility] L results) Hospital [facility] Baso 0.0 Normal (applies [place] [facility] Absolute x10(3)/mc to non-numeric - [facility] L results) Hospital Center ID Date Data Source [id number] 04/24/2019 10:03:00 PM EDT [facility] [id number] Hospital Center Name Value Range Interpretation Code Description Data Amber rce(s) Supporting Document(s ) INR 1.2 Normal (applies to [place] [facility] nadia - non-numeric results) [facility] PT 14.1 s Above high normal [facility] marika - [facility] ID Date Data Source [id number] 04/24/2019 10:03:00 PM EDT [facility] [id number] Hospital Center Name Value Range Interpretation Description Data Source(s ) Supporting Code Document(s ) Lipase Lvl 84 unit/L Normal [facility] results) Hospital Center ID Date Data Source [id number] 04/24/2019 10:03:00 PM EDT [facility] [id number] Hospital Center Name Value Range Interpretation Code Description Data Amber rce(s) Supporting Document(s ) Bili Direct Normal (applies to [facility]-numeric [facility] results) Hospital Center ID Date Data Source [id number] 04/24/2019 10:03:00 PM EDT [facility] [id number] Hospital Center Name Value Range Interpretation Description Data Source(s ) Supporting Code Document(s ) Glucose Lvl 89 mg/dL Normal (applies [facility] marika to non-numeric [facility] results) Hospital [facility] BUN 17 mg/dL Normal (applies [facility] to non-numeric [facility] results) Hospital [facility] Creatinine 1.15 Normal (applies [facility] mg/dL to non-numeric - [facility] results) [facility] Sodium Lvl 140 Normal (applies [facility] an mmol/L to non-numeric - [facility] results) Hospital [facility] Potassium Lvl 3.7 Normal (applies [facility] mmol/L to non-numeric - [facility] results) [facility] Chloride 104 Normal (applies [place] [facility] [place] mmol/L to non-numeric - [facility] results) Hospital [facility] CO2 29 Normal (applies [place] [facility] mmol/L to non-numeric - [facility] results) Hospital [facility] Calcium Lvl 9.4 Normal (applies [facility] marika mg/dL to [facility] results) Hospital [facility] AGPK 10.7 Normal (applies [facility] to [facility] results) [facility] Albumin Lvl 3.9 g/dL Normal (applies [facility]ika to [facility] results) [facility] Total Protein 6.5 g/dL Normal (applies [facility] to [facility] results) [facility] AST 22 Normal (applies [facility] n unit/L to [facility] results) [facility] ALT 30 Normal (applies [facility] unit/L to [facility] results) [facility] Bili Total 1.30 Normal (applies [facility] an mg/dL to [facility] results) [facility] Alk Phos 59 Normal (applies [facility] unit/L to [facility] results) Hospital Center ID Date Data Source [id number] 04/24/2019 10:03:00 PM EDT [facility] [id number] Hospital Center Name Value Range Interpretation Description Data Source(s ) Supporting Code Document(s ) RBC 4.47 Below low normal [facility] an x10(6)/[facility] L Hospital Center WBC 7.5 Normal (applies to [facility] nadia x10(3)/[facility] results) Hospital Center Hgb 14.6 g/dL Normal (applies to [facility] results) Hospital Center MCV 98.0 fL Normal ([facility] Hct 43.9 % Normal (applies to [facility] results) Hospital Center MCHC 33.4 g/dL Normal (applies to [facility] results) Hospital Center MCH 32.7 pg Above high normal [facility] [place] RDW 13.2 % Normal (applies to [facility] results) Hospital Center Platelet 144 Normal (applies to [facility] x10(3)/mc non-numeric - [facility] L results) Hospital Center MPV 8.9 fL Normal (applies to [facility] non-[facility] results) Hospital Center ID Date Data Source [id number] 04/24/2019 10:03:00 PM EDT [facility] [id number] [facility] Name Value Range Interpretation Description Data Source(s ) Supporting Code Document(s ) Amylase Lvl 83 unit/L Normal (applies to [facility] non-[facility] results) Hospital Center ID Date Data Source [id number] 04/24/2019 01:07:12 PM EDT [facility] [id number] [facility] Name Value Range Interpretation Code Description Data Amber rce(s) Supporting Document(s ) RADRPT <table [facility] border="1" - [facility] width="95%"><col Hospital Cent er group><col width="25%"></co l><col width="25%"></co l><col width="25%"></co l><col width="25%"></co l></colgroup><tb kimberly><tr><td>Exam Date Time</td><td>Pro cedure</td><td>P erforming Provider</td><td >Status</td></tr ><tr><td>04/24/19 1:12 PM</td><td>XR Abdomen AP</td><td>KLANG ARRT, DWIGHT; </td><td>Auth (Verified)</td>< /tr></tbody></ta ble><paragraph>N otes:</paragraph ><paragraph>(XR Abdomen AP) Reason For Exam: Pain, Abdominal</emily raph><paragraph> <content>Report< /content>
<c ontent ID="[id number]">EXAMINATI ON: Single view of the abdomen was obtained.
CLINICAL HISTORY: Abdominal pain
COMPARI SON: None.

T here is nonspecific prominence of small bowel loops in the left
abdomen and pelvis.
<br/ >IMPRESSION:
Mildly prominent small bowel loops in left abdomen. </content>
< content> Final
Dictat ed By: ROSIE POOL MD 04.24.2019 1:20 pm

Rele ased By: (Electronic Signature)
S igned: ROSIE POOL MD 04.24.2019 1:20 pm

Perez scribed: 04.24.2019 1:22 pm </content></para graph> ID Date Data Source [id number] 04/24/2019 12:29:00 PM EDT [facility] [id number] [facility] Name Value Range Interpretation Code Description Data Amber rce(s) Supporting Document(s ) EGFR Non [facility] - AA [facility] EGFR AA [facility] ID Date Data Source [id number] 04/24/2019 12:29:00 PM EDT [facility] [id number] [facility] Name Value Range Interpretation Description Data Source(s ) Supporting Code Document(s ) Monocyte 7.0 % Normal (applies [facility] Man to non-[facility] results) [facility] [place] Band Man 2.0 % Normal (applies [facility] to non-[facility] results) [facility] [place] Segs Man 83.0 % Above high normal [facility] marika [facility] Lymph Man 8.0 % Below low normal [facility] an [facility] Basophil 0.0 % Normal (applies [facility] Man to non-[facility] results) [facility] Plts Morph Plt Normal (applies [facility] Adequ[facility] to non-numeric - [facility] 12:29 PM) Eos Man 0.0 % Normal (applies [place] [facility] to non-numeric - [facility] results) Hospital [facility] RBC Morph Normal Normal (applies [place] [facility] (04/24/19 to non-numeric - [facility] 12:29 PM) results) Hospital Center ID Date Data Source [id number] 04/24/2019 12:29:00 PM EDT [facility] [id number] Hospital Center Name Value Range Interpretation Description Data Source(s ) Supporting Code Document(s ) Lymph 9.6 % Below low normal [facility] an Percent - [facility] Neutro 83.1 % Above high normal [facility] marika Percent - [facility] Neutro 8.7 Above high normal [facility] marika Absolute x10(3)/ - [facility] L [facility] Baso Percent 0.3 % Normal (applies [place] [facility] nadia to non-numeric - [facility] results) Hospital [facility] Eos Percent 0.2 % Normal (applies [place] [facility] marika to non-numeric - [facility] results) [facility] [place] Percent 6.8 % Normal (applies [place] [facility] nadia to non-numeric [facility] results) [facility] Baso 0.0 Normal (applies [place] [facility] Absolute x10(3)/mc to non-numeric - [facility] L results) Hospital Center Eos Absolute 0.0 Normal (applies [place] [facility] nadia x10(3)/mc to non-numeric - [facility] L results) Hospital [facility] Lymph 1.0 Below low normal [place] [facility] an Absolute x10(3)/mc - [place] [facility] [place] 0.7 Normal (applies [place] [facility] Absolute x10(3)/mc to non-numeric - [facility] L results) Hospital Center ID Date Data Source [id number] 04/24/2019 12:29:00 PM EDT [facility] [id number] Hospital Center Name Value Range Interpretation Code Description Data Amber rce(s) Supporting Document(s ) PT 12.8 s Normal (applies to [facility] - non-numeric results) [facility] INR 1.1 Normal (applies to [facility] - non-numeric results) [facility] ID Date Data Source [id number] 04/24/2019 12:29:00 PM EDT [facility] [id number] Hospital Center Name Value Range Interpretation Description Data Source(s ) Supporting Code Document(s ) Lipase Lvl 101 Normal (applies to [facility] erian unit/L non-numeric - [facility] results) Hospital Center ID Date Data Source [id number] 04/24/2019 12:29:00 PM EDT [facility] [id number] Hospital Center Name Value Range Interpretation Code Description Data Amber rce(s) Supporting Document(s ) Bili Direct Normal (applies to [facility] non-[facility] results) Hospital Center ID Date Data Source [id number] 04/24/2019 12:29:00 PM EDT [facility] [id number] Hospital Center Name Value Range Interpretation Description Data Source(s ) Supporting Code Document(s ) Glucose Lvl 85 mg/dL Normal (applies [facility] marika to non-numeric - [facility] results) Hospital [facility] Creatinine 1.06 Normal (applies [facility] mg/dL to non-numeric - [facility] results) [facility] BUN 15 mg/dL Normal (applies [place] [facility] to non-numeric - [facility] results) [facility] Chloride 104 Normal (applies [facility] mmol/L to non-numeric - [facility] results) [facility] Sodium Lvl 142 Normal (applies [facility] an mmol/L to non-numeric - [facility] results) Hospital [facility] Potassium Lvl 3.8 Normal (applies [place] [facility] mmol/L to non-numeric - [facility] results) [facility] Total Protein 7.4 g/dL Normal (applies [facility] to non-numeric - [facility] results) [facility] Calcium Lvl 10.4 Above high normal [place] [facility] mg/dL - [facility] [place] AGPK 13.8 Normal (applies [facility] to non[facility] results) [facility] CO2 28 Normal (applies [facility] mmol/L to [facility] results) [facility] ALT 33 Normal (applies [facility] unit/L to [facility] results) Hospital [facility] Albumin Lvl 4.6 g/dL Normal (applies [facility] marika to non-[facility] results) [facility] AST 21 Normal (applies [facility] unit/L to [facility] results) Hospital [facility] Bili Total 1.10 Normal (applies [facility] mg/dL to [facility] results) Hospital [facility] Alk Phos 77 Normal (applies [facility] unit/L to [facility] results) Hospital Center ID Date Data Source [id number] 04/24/2019 12:29:00 PM EDT [facility] [id number] Hospital Center Name Value Range Interpretation Description Data Source(s ) Supporting Code Document(s ) RBC 4.77 Normal (applies to [facility] nadia x10(6)/[facility] L results) Hospital [facility] WBC 10.4 Normal ([facility] L results) Hospital Center Hct 45.6 % Normal (applies [facility] nadia [facility] results) Hospital Center MCH 33.5 pg Above high normal [facility] [place] Hgb 16.0 g/dL Normal (applies to [facility] results) Hospital [facility] MCV 95.7 fL Normal (applies to [facility] results) Hospital Center RDW 13.2 % Normal (applies to [facility] results) [facility] [place] MPV 8.8 fL Normal (applies to [facility] results) [facility] MCHC 35.0 g/dL Normal (applies to [facility]ia non-numeric - [facility] results) [facility] Platelet 161 Normal (applies to [facility] nadia x10(3)/mc non-numeric - [facility] L results) Hospital Center ID Date Data Source [id number] 04/24/2019 12:29:00 PM EDT [facility] [id number] Hospital Center Name Value Range Interpretation Description Data Source(s ) Supporting Code Document(s ) Amylase Lvl 92 unit/L Normal (applies to [facility] non-numeric - [facility] results) Hospital Center ID Date Data Source [id number] 04/24/2019 12:22:00 PM EDT [facility] [id number] Hospital Center Name Value Range Interpretation Description Data Source(s ) Supporting Code Document(s ) UA Glucose Negative Normal (applies [facility] (04/24/19 to non-numeric [facility] - 12:22 PM) results) [facility] UA Protein Negative Normal (applies [facility] (04/24/19 to non-numeric [facility] - 12:22 PM) results) [facility] UA Bili Negative Normal (applies [facility] (04/24/19 to non-numeric [facility] - 12:22 PM) results) [facility] UA Normal Normal (applies [facility] Urobilin[facility] (04/24/19 to non-numeric [facility] - 12:22 PM) results) [facility] UA pH 6.0 Normal (applies [facility] to non-numeric [facility] - results) [facility] UA Ketones Negative Normal (applies [facility] (04/24/19 to non-numeric [facility] - 12:22 PM) results) [facility] UA Nitrite Negative Normal (applies [facility] (04/24/19 to non-numeric [facility] - 12:22 PM) results) [facility] UA Blood Negative Normal (applies [facility] (04/24/19 to non-numeric [facility] - 12:22 PM) results) [facility] UA Spec Grav 1.024 Normal (applies [place] to non-numeric [facility] - results) [facility] UA Leuk Est Negative Normal (applies [place] (04/24/19 to non-numeric [facility] - 12:22 PM) results) [facility] U[place] Appear Clear Normal (applies [place] (04/24/19 to non-numeric [facility] - 12:22 PM) results) [facility] UA Color Yellow Normal (applies [place] (04/24/19 to non-numeric [facility] - 12:22 PM) results) [facility] Procedure Vital Signs ID Date Data Source UNK Name Value Range Interpretation Code Description Data Source(s) Mean blood 89 mm[Hg] 89 mm[Hg] [place] [facility] - pressure [facility] Diastolic blood 68 mm[Hg] Normal (applies to 68 mm[Hg] [place] [facility] - pressure non-numeric results) [facility] Systolic blood 130 mm[Hg] Normal (applies to 130 mm[Hg] [place] [facility] - pressure non-numeric results) [facility] Respiratory rate 16 br/min Normal (applies to 16 br/min [place] [facility] - non-numeric results) [facility] Peripheral Pulse 84 bpm Normal (applies to 84 bpm [place] [facility] - Rate non-numeric results) [facility] Body temperature - 98.1 [degF] 98.1 [degF] [place] [facility] - Temporal artery [facility] Body surface area 1.88 1.88 [place] [facility] - [facility] Body weight 70.4 kg 70.4 kg [place] [facility] - Measured [facility] Body height 180 cm 180 cm [place] [facility] - [facility] Mean blood 99 mm[Hg] 99 mm[Hg] [place] [facility] - pressure [facility] Diastolic blood 81 mm[Hg] Normal (applies to 81 mm[Hg] [place] [facility] - pressure non-numeric results) [facility] Systolic blood 134 mm[Hg] Normal (applies to 134 mm[Hg] [place] [facility] - pressure non-numeric results) [facility] Respiratory rate 18 br/min Normal (applies to 18 br/min [place] [facility] - non-numeric results) [facility] Peripheral Pulse 85 bpm Normal (applies to 85 bpm [place] [facility] - Rate non-numeric results) [facility] Body temperature - 98 [degF] 98 [degF] [facility] - Temporal artery [facility] Body height 180.000 cm 180.000 cm [facility] Body weight 70.400 kg 70.400 kg [facility] - Measured [facility] Mean blood 78 mm[Hg] 78 mm[Hg] [facility] - pressure [facility] Diastolic blood 60 mm[Hg] Normal (applies to 60 mm[Hg] [place] [facility] - pressure non-numeric results) [facility] Systolic blood 115 mm[Hg] Normal (applies to 115 mm[Hg] [place] [facility] - pressure non-numeric results) [facility] Peripheral Pulse 86 bpm Normal (applies to 86 bpm [place] [facility] - Rate non-numeric results) [facility] Body temperature - 97.5 [degF] 97.5 [degF] [facility] - Temporal artery [facility] Body height 175.000 [facility]000 [facility] 66.000 kg 66.000 kg [facility] - Measured [facility] Body surface area 1.79 1.79 [facility] - [facility] Body weight 66 kg 66 kg [facility] - Measured [facility] Body height 175 cm [facility] Mean blood 90 mm[Hg] 90 mm[Hg] [facility] - pressure [facility] Diastolic blood 78 mm[Hg] Normal (applies to 78 mm[Hg] [place] [facility] - pressure non-numeric results) [facility] Systolic blood 115 mm[Hg] Normal (applies to 115 mm[Hg] [facility] - pressure non-numeric results) [facility] Respiratory rate 17 br/min Normal (applies to 17 br/min [place] [facility] - non-numeric results) [facility] Peripheral Pulse 70 bpm Normal (applies to 70 bpm [facility] - Rate non-numeric results) [facility] Body temperature - 98.0 [degF] 98.0 [degF] [facility] - Temporal artery [facility] Patient Treatment Plan of Care Planned Activity Planned Date Details Description Data Source (s) Naproxen 500 MG Oral 04/25/2019 [facility] - Tablet 12:54:44 AM EDT [facility] Ondansetron 4 MG 04/25/2019 [facility] - Disintegrating Oral 12:54:18 AM EDT [facility] Ondansetron 4 MG 04/25/2019 [facility] - Disintegrating Oral 12:54:17 AM EDT [facility] Loperamide Hydrochloride 04/25/2019 [facility] - 2 MG Oral Tablet 12:54:[address] [facility] Esomeprazole 20 MG 04/25/2019 [facility] - Delayed Release Oral 12:54:15 AM EDT [facility]
== END 2020-05-26 20:31 | disposition home or self-care (01) ==
LOC: JERFT 20:02
DX: R05 Cough (principal); J06.9 Acute upper respiratory infection, unspecified
CPT/HCPCS: 99282-25

== ENCOUNTER 2024-12-16 02:37 | Emergency (ER) | payer SELFPAY ==
[2024-12-16 02:43] VITALS: BP 119/69; PULSE 74; RESP 18; TEMP 98.7; BMI 23.0
[2024-12-16] MEDS ORDERED: KETOROLAC TROMETHAMINE 30 MG/1 ML VIAL ONE (02:55)
[2024-12-16] MEDS ORDERED: DEXAMETHASONE SOD PHOSPHATE 10 MG/1 ML VIAL ONE (02:55)
[2024-12-16] MEDS: DEXAMETHASONE LIQUID 0.5 MG/5 ML PO ONE (03:00)
[2024-12-16] MEDS: KETOROLAC TROMETHAMINE 30 MG/1 ML VIAL IM ONE (03:00)
[2024-12-16 03:28] LABS: THROAT:GRP A STREP DETECTED (NOTDETECTED)
[2024-12-16] MEDS ORDERED: AMOXICILLIN 250 MG CAPSULE ONE (03:44)
[2024-12-16] MEDS: AMOXICILLIN 500 MG CAPSULE (FP) PO ONE (03:46)
== END 2024-12-16 03:46 | disposition home or self-care (01) ==
LOC: JER 02:37
PROC: 3E0233Z Introduction of Anti-inflammatory into Muscle, Percutaneous Approach (ICD-10-PCS; principal; 2024-12-16)
DX: J02.0 Streptococcal pharyngitis (principal); R50.9 Fever, unspecified; R13.10 Dysphagia, unspecified
CPT/HCPCS: 0241U-QW; 87651; 99284-25

== ENCOUNTER 2025-03-26 00:59 | Emergency (ER) | payer OTHER ==
[2025-03-26 01:14] VITALS: BP 128/89; PULSE 75; RESP 18; TEMP 98; BMI 24.0
== END 2025-03-26 02:00 | disposition home or self-care (01) ==
LOC: JER 00:59
DX: M26.622 Arthralgia of left temporomandibular joint (principal)
CPT/HCPCS: 99283-25